=== PATIENT | male | born 1975 | race Caucasian/White ===

== ENCOUNTER 2021-10-16 17:17 | Inpatient (IN) | payer SELFPAY ==
[~2021-10-16] VITALS: Ht 177.8 cm; Wt 73.9 kg
--- NOTE | 2021-10-16 17:25 | NUR ---
BIB SELF C/O [facility] ON THE TESTICLE X 2 DAYS, TO ER BED 3, HOOKED TO MONITOR, VSS, CHANGED TO HOSP GOWN. KEPT COMFORTABLE. AWAITING MD GUSMAN
--- NOTE | 2021-10-16 19:04 | NUR ---
DR DEVLIN AT BEDSIDE
[2021-10-16] MEDS ORDERED: KETOROLAC TROMETHAMINE 15 MG/ML VIAL ONE (19:07)
--- NOTE | 2021-10-16 19:28 | NUR ---
ENDORSEMENT GIVEN TO LIDA GRAHAM FOR KOLTON
[2021-10-16] MEDS ORDERED: KETOROLAC TROMETHAMINE INJ 30 MG/ML VIAL IV ONE (19:30)
[2021-10-16] MEDS ORDERED: IV NS 0.9% 500 ML BAG IV ONE (19:30)
--- NOTE | 2021-10-16 19:37 | NUR ---
US TECH AT PT'S BEDSIDE
[2021-10-16 19:54] LABS: BASOPHILS % (AUTO) 0.3 % (0.0-2.0); EOSINOPHILS % (AUTO) 1.6 % (0.0-6.0); HEMATOCRIT 37 % (39-51); HEMOGLOBIN 12.2 g/dL (13.5-17.5); LYMPHOCYTES # (AUTO) 1.5 K/uL (0.8-4.8); LYMPHOCYTES % (AUTO) 10.7 % (20.0-44.0); MEAN CORPUSCULAR HGB CONC 33 g/dl (31.0-36.0); MEAN CORPUSCULAR VOLUME 90 fL (80-96); MONOCYTES # (AUTO) 1.1 K/uL (0.1-1.30); MONOCYTES % (AUTO) 8.1 % (2.0-12.0); NEUTROPHILS # (AUTO) 10.8 K/uL (1.8-8.9); NEUTROPHILS % (AUTO) 79.3 % (43.0-81.0); PLATELET COUNT (AUTO) 383 K/uL (150-450); RED BLOOD CELL COUNT(AUTO) 4.07 MIL/uL (4.5-6.0); WHITE BLOOD COUNT (AUTO) 13.6 K/uL (4.3-11.0)
[2021-10-16 19:56] LABS: CALCIUM, SERUM 8.9 mg/dL (8.5-10.1); CREATININE 1.1 mg/dL (0.6-1.3)
[2021-10-16] MEDS ORDERED: PIPERACILLIN /TAZOBACTAM 3.375 G in IV D5W 50 ML IV ONE (20:00)
[2021-10-16] MEDS ORDERED: PIPERACILLIN /TAZOBACTAM 3.375 G VIAL IV ONE (20:05)
[2021-10-16] MEDS ORDERED: IOHEXOL-300 100 ML VIAL IV ONE (21:01)
[2021-10-16] MEDS ORDERED: IV NS 0.9% 250 ML IV ONE (21:01)
--- NOTE | 2021-10-16 21:08 | NUR ---
PT TAKEN TO CT VIA EAN
--- NOTE | 2021-10-16 21:47 | NUR ---
COVID ANTIGEN SWAB COLLECTED AND SENT TO LAB
[2021-10-16] MEDS ORDERED: VANCOMYCIN 1 GM VIAL ONE (22:27)
--- NOTE | 2021-10-16 22:29 | NUR ---
CALLED NURSING SUP FOR BED
[2021-10-16] MEDS ORDERED: VANCOMYCIN 1 GM in IV D5W 250 ML IV ONE (22:30)
[2021-10-16] MEDS ORDERED: ONDANSETRON HCL/PF 4 MG/2 ML VIAL IVP PRN (23:00)
[2021-10-16] MEDS ORDERED: ZOLPIDEM TARTRATE 5 MG TABLET PO PRN (23:00)
[2021-10-16] MEDS ORDERED: ACETAMINOPHEN 325 MG TABLET PO PRN (23:00)
[2021-10-16] MEDS ORDERED: MAGNESIUM HYDROXIDE 30 ML UDC PO PRN (23:00)
[2021-10-16] MEDS ORDERED: Z GUARD REMEDY 4 OZ OINT TP PRN (23:00)
[2021-10-16] MEDS ORDERED: MORPHINE SULFATE INJ 2 MG/ML DISP.SYRIN IV PRN (23:00)
[2021-10-16] MEDS ORDERED: MAG HYDROX/AL HYDROX/SIMETH 30 ML UDC PO PRN (23:00)
[2021-10-17] MEDS ORDERED: PIPERACILLIN /TAZOBACTAM 3.375 G in IV D5W 50 ML IV SCH ×2 (02:00→08:00)
[2021-10-17] MEDS ORDERED: PIPERACILLIN /TAZOBACTAM 3.375 G VIAL IV ONE ×2 (02:12→07:08)
--- NOTE | 2021-10-17 03:16 | NUR ---
PT SLEEPING AT THIS TIME. NO S/SX OF PAIN. PT KEPT COMFORTABLE; ALL NEEDS MET.
[2021-10-17 04:40] LABS: BASOPHILS % (AUTO) 0.3 % (0.0-2.0); EOSINOPHILS % (AUTO) 2.4 % (0.0-6.0); HEMATOCRIT 37 % (39-51); HEMOGLOBIN 12.3 g/dL (13.5-17.5); LYMPHOCYTES # (AUTO) 1.5 K/uL (0.8-4.8); LYMPHOCYTES % (AUTO) 13.2 % (20.0-44.0); MEAN CORPUSCULAR HGB CONC 33 g/dl (31.0-36.0); MEAN CORPUSCULAR VOLUME 91 fL (80-96); MONOCYTES % (AUTO) 8.3 % (2.0-12.0); NEUTROPHILS # (AUTO) 8.8 K/uL (1.8-8.9); NEUTROPHILS % (AUTO) 75.8 % (43.0-81.0); PLATELET COUNT (AUTO) 368 K/uL (150-450); RED BLOOD CELL COUNT(AUTO) 4.11 MIL/uL (4.5-6.0); WHITE BLOOD COUNT (AUTO) 11.6 K/uL (4.3-11.0)
[2021-10-17 05:01] LABS: ALBUMIN 2.9 g/dL (3.4-5.0); BILIRUBIN,TOTAL 0.3 mg/dL (0.2-1.0); CALCIUM, SERUM 9.2 mg/dL (8.5-10.1); CREATININE 1.1 mg/dL (0.6-1.3); MAGNESIUM 2.4 mg/dL (1.8-2.4); PHOSPHORUS 4.4 mg/dL (2.5-4.9); POTASSIUM 4.2 mmol/L (3.5-5.1); TOTAL PROTEIN, SERUM 7.3 g/dL (6.4-8.2)
[2021-10-17] MEDS ORDERED: PANTOPRAZOLE 40 MG TABLET.DR PO ONE (07:23)
[2021-10-17] MEDS: ZOSYN IVPB 3.375 G in IV D5W 50ml IV SCH ×4 (07:27→23:36)
[2021-10-17] MEDS: PANTOPRAZOLE 40 MG TABLET.DR PO SCH (07:27)
--- NOTE | 2021-10-17 07:50 | NUR ---
U/S TECH AT BEDSIDE FOR ULTRASOUND OF KIDNEYS.
[2021-10-17] MEDS: VANCOMYCIN 1 GM in IV D5W 250ml IV SCH ×2 (08:20→15:56)
--- NOTE | 2021-10-17 08:47 | NUR ---
REPORT GIVEN TO MINDA RN ROOM 306-2
--- NOTE | 2021-10-17 09:00 | NUR ---
MS ADMIT FROM ER AFTER REPORT RECEIVED. PATIENT ORIENTED TO PRIMARY RN, UNIT, ROOM, BED, AND UNIT POLICIES REGARDING PATIENT CARE AND VISITING HOURS. PATIENT WEIGHED BY BEDSCALE AND ENCOURAGED TO CALL IF THEY NEED SOMETHING. ALL QUESTIONS AND CONCERNS ADDRESSED. PATIENT VERBALIZED UNDERSTANDING.
[2021-10-17] MEDS: HYDROCODONE/APAP 10/325MG TABLET PO PRN (14:38)
[2021-10-17 15:55] VITALS: BP 112/65
--- NOTE | 2021-10-17 18:59 | NUR ---
CHANGE OF SHIFT REPORT PT RESTING COMFORTABLY IN BED. NO S/S OR C/O PAIN OR DISTRESS NOTED. SIDE RAILS UP X2, CALL LIGHT LEFT WITHIN REACH. PT KEPT CLEAN, DRY, AND COMFORTABLE, NO SIGNIFICANT CHANGES SINCE ADMISSION. WILL GIVE REPORT TO HEATHER GRAHAM.
--- NOTE | 2021-10-17 19:24 | NUR ---
MS OPENING NOTES PT RESTING COMFORTABLY IN BED. NO S/S OR C/O PAIN OR DISTRESS NOTED. SIDE RAILS UP X2, CALL LIGHT LEFT WITHIN REACH. PT KEPT CLEAN, DRY, AND COMFORTABLE, WILL CONTINUE TO MONITOR.
[2021-10-17 20:04] VITALS: BP 112/67
[2021-10-18] MEDS: VANCOMYCIN 1 GM in IV D5W 250ml IV SCH ×2 (00:18→11:21)
[2021-10-18] MEDS: ZOSYN IVPB 3.375 G in IV D5W 50ml IV SCH ×4 (05:56→23:36)
[2021-10-18] MEDS: HYDROCODONE/APAP 10/325MG TABLET PO PRN ×2 (06:02→11:17)
--- NOTE | 2021-10-18 06:06 | NUR ---
MS RN NOTES PRN NORCO GIVEN FOR 5/10 PAIN IN THE SCROTAL AREA. TOLERATED WELL. WILL CONTINUE TO MONITOR.
--- NOTE | 2021-10-18 06:53 | NUR ---
MS CLOSING NOTES PT RESTING COMFORTABLY IN BED. NO S/S OR C/O PAIN OR DISTRESS NOTED. SIDE RAILS UP X2, CALL LIGHT LEFT WITHIN REACH. PT KEPT CLEAN, DRY, AND COMFORTABLE, ALL NEEDS ATTENDED TO AND ANTICIPATED. WILL ENDORSE CARE TO DYA SHIFT NURSE.
--- NOTE | 2021-10-18 07:30 | NUR ---
m/s burnishing machine operator: initial assessment received pt in bed awake, a/ox4. no c/o pain at this time. right scrotal still swelling with redness. remains on antibiotic therapy. no a/r noted. instructed to call for assistance. will continue to monitor.
[2021-10-18 07:52] LABS: BASOPHILS % (AUTO) 0.2 % (0.0-2.0); EOSINOPHILS % (AUTO) 1.7 % (0.0-6.0); HEMATOCRIT 38 % (39-51); HEMOGLOBIN 12.3 g/dL (13.5-17.5); LYMPHOCYTES % (AUTO) 10.5 % (20.0-44.0); MEAN CORPUSCULAR HGB CONC 33 g/dl (31.0-36.0); MEAN CORPUSCULAR VOLUME 90 fL (80-96); MONOCYTES % (AUTO) 8.6 % (2.0-12.0); NEUTROPHILS # (AUTO) 10.5 K/uL (1.8-8.9); PLATELET COUNT (AUTO) 364 K/uL (150-450); RED BLOOD CELL COUNT(AUTO) 4.16 MIL/uL (4.5-6.0); WHITE BLOOD COUNT (AUTO) 13.3 K/uL (4.3-11.0)
[2021-10-18 07:53] LABS: LYMPHOCYTES # (AUTO) 1.4 K/uL (0.8-4.8); MONOCYTES # (AUTO) 1.1 K/uL (0.1-1.30)
[2021-10-18 08:00] VITALS: BP 100/63
--- NOTE | 2021-10-18 08:39 | NUR ---
m/s assistant director of public works: notes awaiting for vanco trough result.
[2021-10-18 08:56] LABS: CALCIUM, SERUM 8.5 mg/dL (8.5-10.1); CREATININE 1.2 mg/dL (0.6-1.3); MAGNESIUM 2.2 mg/dL (1.8-2.4); PHOSPHORUS 3.5 mg/dL (2.5-4.9); POTASSIUM 4.1 mmol/L (3.5-5.1)
[2021-10-18] MEDS: PANTOPRAZOLE 40 MG TABLET.DR PO SCH (09:34)
--- NOTE | 2021-10-18 10:00 | NUR ---
m/s soft work wrapper examiner: md visit seen and examined by lana mar (etl database developer) at this time.
--- NOTE | 2021-10-18 14:47 | NUR ---
m/s water superintendent: notes resting comfortable in bed. no distress noted. call light within reach. will continue to monitor.
[2021-10-18 16:00] VITALS: BP 114/75
[2021-10-18] MEDS: VANCOMYCIN 0.75 GM in IV D5W 250 ML IV SCH (16:25)
--- NOTE | 2021-10-18 19:00 | NUR ---
m/s non linear editor: notes bedside report given to dada (rn) for continuity of care.
--- NOTE | 2021-10-18 19:40 | NUR ---
OPENING NOTES PT RESTING COMFORTABLY IN BED. NO S/S OR C/O PAIN OR DISTRESS NOTED.PATIENT ON ROOM AIR, SATURATING 100%.MED SURG PATIENT. UNIVERSAL PRECAUTIONS TAKEN AT THIS TIME. SIDE RAILS UP X2, CALL LIGHT LEFT WITHIN REACH. PT KEPT CLEAN, DRY, AND COMFORTABLE, WILL CONTINUE TO MONITOR.
[2021-10-18 20:00] VITALS: BP 106/68
[2021-10-19] MEDS: VANCOMYCIN 0.75 GM in IV D5W 250 ML IV SCH ×4 (00:20→23:57)
[2021-10-19] MEDS: ZOSYN IVPB 3.375 G in IV D5W 50ml IV SCH ×3 (05:56→18:57)
--- NOTE | 2021-10-19 06:51 | NUR ---
RN NOTE PATIENT REMAINS IN STABLE CONDITION, NO CHANGES THROUGHOUT THE NIGHT. WILL ENDORSE PLAN OF CARE TO AM NURSE.
[2021-10-19 07:21] LABS: BASOPHILS % (AUTO) 0.3 % (0.0-2.0); EOSINOPHILS % (AUTO) 1.9 % (0.0-6.0); HEMATOCRIT 40 % (39-51); HEMOGLOBIN 13.1 g/dL (13.5-17.5); LYMPHOCYTES # (AUTO) 1.6 K/uL (0.8-4.8); LYMPHOCYTES % (AUTO) 10.5 % (20.0-44.0); MEAN CORPUSCULAR HGB CONC 33 g/dl (31.0-36.0); MEAN CORPUSCULAR VOLUME 90 fL (80-96); MONOCYTES # (AUTO) 1.2 K/uL (0.1-1.30); MONOCYTES % (AUTO) 8.3 % (2.0-12.0); NEUTROPHILS # (AUTO) 11.9 K/uL (1.8-8.9); PLATELET COUNT (AUTO) 401 K/uL (150-450)
[2021-10-19 07:28] LABS: CALCIUM, SERUM 9.3 mg/dL (8.5-10.1); CREATININE 1.2 mg/dL (0.6-1.3); MAGNESIUM 2.4 mg/dL (1.8-2.4); PHOSPHORUS 3.2 mg/dL (2.5-4.9)
[2021-10-19 08:00] VITALS: BP 101/69
--- NOTE | 2021-10-19 08:00 | NUR ---
RN Opening Note Patient received in bed, AO x 4, no distress observed, able to responds all stimuli. Skin is warm to touch, keep clean/dry, intact IV site. Kept elevated HOB for ensure air/aspiration precaution and remains lower position of the bed. call light within reach, will continue to monitor.
[2021-10-19] MEDS: PANTOPRAZOLE 40 MG TABLET.DR PO SCH (08:09)
[2021-10-19 16:00] VITALS: BP 126/82
--- NOTE | 2021-10-19 18:00 | NUR ---
RN Closing Note Patient is resting in bed, no distress observed. Respiratory even and unlabored on room air. Skin is warm to touch, keep clean/dry, intact IV site. Kept elevated HOB for ensure airway and aspiration precaution, Also lower position of the bed for safety. Call light within reach, all needs met. will endorse [facility] shift lead.
--- NOTE | 2021-10-19 18:00 | NUR ---
RN Opening Note Patient received in bed, AO x 4, no distress observed, able to responds all stimuli. Skin is warm to touch, keep clean/dry, intact IV site. Kept elevated HOB for ensure air/aspiration precaution and remains lower position of the bed. call light within reach, will continue to monitor. Addendum: 10/19/21 at 1815 by DARIUS MORFIN RN error
--- NOTE | 2021-10-19 19:50 | NUR ---
MS RN OPENING NOTE PATIENT AWAKE IN BED WITH GIRLFRIEND AT BEDSIDE, ALERT/ORIENTED X 4, PT ABLE TO MAKE NEEDS KNOWN. PT DENIES PAIN AT THIS TIME. PT STABLE ON RA, NO S/S OF DISTRESS OR SOB NOTED, BREATHING EVEN AND UNLABORED. IV ACCESS ON RIGHT AC #20G INTACT AND FLUSHING WELL, SALINE LOCKED. SAFETY MEASURES IN PLACE: CALL LIGHT WITHIN REACH, SIDE RAILS UP X 2, BED LOCKED IN LOW POSITION, TABLE WITHIN REACH. WILL CONTINUE TO MONITOR PATIENT
[2021-10-19] MEDS ORDERED: MORPHINE SULFATE INJ 2 MG/ML DISP.SYRIN IV ONE (21:15)
[2021-10-19] MEDS ORDERED: LIDOCAINE HCL/MPF 1% 30 ML VIAL IJ ONE (21:15)
[2021-10-19] MEDS ORDERED: LIDOCAINE 2% 20 ML MDV TP ONE (21:30)
--- NOTE | 2021-10-19 22:00 | NUR ---
MS RN NOTE DR. DOUGLAS PERFORMED I & D OF RIGHT SCROTUM AT BEDSIDE, PER MD 3 MG OF MORPHINE IV GIVEN PRIOR TO PROCEDURE, 2 WOUND CULTURES COLLECTED AND SENT TO LAB. PATIENT TOLERATED WELL. CLEANED UP PATIENT AND COVERED SITE WITH DRY DRESSING. WILL CONTINUE TO MONITOR PATIENT
[2021-10-20] MEDS: ZOSYN IVPB 3.375 G in IV D5W 50ml IV SCH ×5 (01:12→23:59)
[2021-10-20 06:51] LABS: BASOPHILS % (AUTO) 0.4 % (0.0-2.0); EOSINOPHILS % (AUTO) 2.4 % (0.0-6.0); HEMATOCRIT 39 % (39-51); HEMOGLOBIN 12.8 g/dL (13.5-17.5); LYMPHOCYTES # (AUTO) 1.7 K/uL (0.8-4.8); MEAN CORPUSCULAR HGB CONC 33 g/dl (31.0-36.0); MEAN CORPUSCULAR VOLUME 89 fL (80-96); MONOCYTES # (AUTO) 1.1 K/uL (0.1-1.30); MONOCYTES % (AUTO) 9.5 % (2.0-12.0); NEUTROPHILS # (AUTO) 8.4 K/uL (1.8-8.9); NEUTROPHILS % (AUTO) 72.7 % (43.0-81.0); PLATELET COUNT (AUTO) 391 K/uL (150-450); RED BLOOD CELL COUNT(AUTO) 4.34 MIL/uL (4.5-6.0); WHITE BLOOD COUNT (AUTO) 11.6 K/uL (4.3-11.0)
[2021-10-20 06:57] LABS: CALCIUM, SERUM 9.2 mg/dL (8.5-10.1); CREATININE 1.2 mg/dL (0.6-1.3); MAGNESIUM 2.6 mg/dL (1.8-2.4); PHOSPHORUS 4.9 mg/dL (2.5-4.9); POTASSIUM 4.1 mmol/L (3.5-5.1)
--- NOTE | 2021-10-20 07:02 | NUR ---
MS RN CLOSING NOTE PATIENT SLEEPING IN BED, NO SIGNIFICANT CHANGES THROUGHOUT SHIFT, PT ABLE TO MAKE NEEDS KNOWN. PT STABLE ON RA, NO S/S OF DISTRESS OR SOB NOTED, BREATHING EVEN AND UNLABORED. RIGHT AC #20G IV ACCESS RUNNING ZOSYN @ 100 ML/HR. MEDICATIONS GIVEN ORDERED, PT NEEDS MET THROUGHOUT SHIFT. SAFETY MEASURES IN PLACE: CALL LIGHT WITHIN REACH, SIDE RAILS UP X 2, BED LOCKED IN LOW POSITION, TABLE WITHIN REACH. WILL ENDORSE TO DAY SHIFT NURSE FOR CONTINUITY OF CARE
[2021-10-20] MEDS: PANTOPRAZOLE 40 MG TABLET.DR PO SCH (07:47)
--- NOTE | 2021-10-20 07:55 | NUR ---
RN Opening Note Patient received in bed, AO x 4, denies distress observed, able to responds all stimuli. Skin is warm to touch, keep clean/dry, intact IV site. Kept elevated HOB for ensure air/aspiration precaution and remains lower position of the bed. call light within reach, will continue to monitor.
[2021-10-20 08:00] VITALS: BP 86/57
[2021-10-20] MEDS: VANCOMYCIN 0.75 GM in IV D5W 250 ML IV SCH ×2 (08:00→15:01)
--- NOTE | 2021-10-20 10:30 | NUR ---
Patient has 22 level of vanco this morning, will hold IV vancomycin.
--- NOTE | 2021-10-20 11:07 | NUR ---
RN NOTE RECEIVED REPORT FOR CONTINUITY OF CARE, PATIENT STABLE AT THIS TIME. WILL CONTINUE TO MONITOR
--- NOTE | 2021-10-20 13:35 | NUR ---
MRI APPROVED BY DR. SANCHES , RN ORTHO NOTIFIED
[2021-10-20 16:00] VITALS: BP 106/56
--- NOTE | 2021-10-20 16:00 | NUR ---
RN NOTE IV ACCESS ON RAC BECAME DISLODGE, NEW IV ACCESS PLACED ON LAC #20 GAUGE PATENT AND INTACT.
--- NOTE | 2021-10-20 18:22 | NUR ---
MS RN CLOSING NOTE PATIENT SLEEPING IN BED, PT ABLE TO MAKE NEEDS KNOWN. PT IS BREATHING EVENLY AND NONLABORED STABLE ON RA, NO S/S OF DISTRESS OR SOB NOTED, DENIES PAIN OR DISCOMFORT AT THIS TIME. PATIENT HAS LEFT AC #20G IV ACCESS PATENT AND INTACT. MEDICATIONS GIVEN ORDERED, PT NEEDS MET THROUGHOUT SHIFT. SAFETY MEASURES IN PLACE: CALL LIGHT WITHIN REACH, SIDE RAILS UP X 2, BED LOCKED IN LOW POSITION, TABLE WITHIN REACH. WILL ENDORSE TO ONCOMING SHIFT
--- NOTE | 2021-10-20 19:28 | NUR ---
MS RN OPENING NOTE PATIENT RECEIVED ASLEEP IN BED. A/OX4. LAC #20 SL INTACT. NO S/S OF DISTRESS, BREATHING SYMMETRICAL. SAFETY MEASURES IN PLACE: BED AT LOWEST POSITION, RAILS UP X2, CALL LUCIO WITHIN REACH. WILL CONTINUE TO MONITOR PATIENT.
[2021-10-20 20:00] VITALS: BP 104/62
[2021-10-21] MEDS: VANCOMYCIN 0.75 GM in IV D5W 250 ML IV SCH ×2 (03:25→16:47)
--- NOTE | 2021-10-21 03:28 | NUR ---
RN NOTE PATIENT'S RECENT VANCO TROUGH LEVEL (10/20/21) IS 22. PER PRESCRIPTION ORDER, VANCO IS TO BE HELD IF TROUGH LEVEL ABOVE 20. PHARMACY WILL BE NOTIFIED IN THE MORNING WHEN THEY OPEN (~0630).
[2021-10-21] MEDS: ZOSYN IVPB 3.375 G in IV D5W 50ml IV SCH ×3 (05:38→18:37)
--- NOTE | 2021-10-21 06:08 | NUR ---
MS RN CLOSING NOTE PATIENT ASLEEP IN BED. A/OX4. NO S/S OF DISTRESS, BREATHING SYMMETRICALLY. LAC #20 SL INTACT AND PATENT. SAFETY MEASURES IN PLACE: BED AT LOWEST POSITION, RAILS UP X2, CALL LUCIO WITHIN REACH. WILL ENDORSE TO NEXT SHIFT FOR KOLTON.
[2021-10-21 06:42] LABS: BASOPHILS % (AUTO) 0.2 % (0.0-2.0); EOSINOPHILS % (AUTO) 3.3 % (0.0-6.0); HEMATOCRIT 40 % (39-51); HEMOGLOBIN 13.1 g/dL (13.5-17.5); LYMPHOCYTES # (AUTO) 1.5 K/uL (0.8-4.8); LYMPHOCYTES % (AUTO) 12.5 % (20.0-44.0); MEAN CORPUSCULAR HGB CONC 33 g/dl (31.0-36.0); MEAN CORPUSCULAR VOLUME 89 fL (80-96); MONOCYTES # (AUTO) 1.2 K/uL (0.1-1.30); MONOCYTES % (AUTO) 9.6 % (2.0-12.0); NEUTROPHILS # (AUTO) 9.2 K/uL (1.8-8.9); NEUTROPHILS % (AUTO) 74.4 % (43.0-81.0); PLATELET COUNT (AUTO) 398 K/uL (150-450); RED BLOOD CELL COUNT(AUTO) 4.46 MIL/uL (4.5-6.0); WHITE BLOOD COUNT (AUTO) 12.4 K/uL (4.3-11.0)
[2021-10-21 07:25] LABS: CREATININE 1.1 mg/dL (0.6-1.3); MAGNESIUM 2.5 mg/dL (1.8-2.4)
--- NOTE | 2021-10-21 07:25 | NUR ---
MS RN OPENING NOTES RECEIVED PATIENT IN BED WITH EYES CLOSED, ABLE TO BE WAKEN. A/OX4. EQUAL CHEST EXPANSION DURING RESPIRATIONS WITH NO S/SX OF RESPIRATORY DISTRESS NOTED. NO PAIN VERBALIZED AT THIS TIME. LAC G#20 SL INTACT AND PATENT. SAFETY MEASURES IN PLACE: BED IN LOWEST POSITION, WHEELS LOCKED, SIDE RAILS UP X2, CALL LIGHT WITHIN REACH. PATIENT IS CURRENTLY NPO PENDING MRI W/ AND W/OUT CONTRAST OF THE ABDOMEN. PATIENT IS AWARE OF PLAN FOR THE DAY. WILL CONTINUE TO MONITOR PATIENT.
[2021-10-21] MEDS: PANTOPRAZOLE 40 MG TABLET.DR PO SCH (07:30)
[2021-10-21 08:05] VITALS: BP 107/60
--- NOTE | 2021-10-21 09:35 | NUR ---
RN NOTES PATIENT TRANSFERRED DOWN TO MRI FOR PROCEDURE VIA WHEELCHAIR ACCOMPANIED BY ONE TECH.
--- NOTE | 2021-10-21 10:06 | NUR ---
WOUND CARE CONSULT: PT OFF UNIT HAVING MRI AT THIS TIME. DEFER TO UROLOGIST FOR WOUND TREATMENT PLAN. DISCUSSED WITH MANUFACTURING INTERN. WILL SEE PRN.
--- NOTE | 2021-10-21 10:20 | NUR ---
RN NOTES PATIENT IS BACK IN ROOM FROM MRI PROCEDURE. NO CHANGE IN CONDITION NOTED. WILL CONTINUE TO MONITOR PATIENT
[2021-10-21] MEDS ORDERED: POLYETHYLENE GLYCOL 3350 17 GM POWD.PACK PO PRN (15:30)
[2021-10-21 15:47] VITALS: BP 108/67
[2021-10-21] MEDS ORDERED: GADOTERATE MEGLUMINE 5 MMOL/10 ML VIAL IV ONE (18:28)
--- NOTE | 2021-10-21 18:38 | NUR ---
MS RN CLOSING NOTES PATIENT IN BED AWAKE, A/OX4. NO S/SX OF RESPIRATORY DISTRESS NOTED THROUGHOUT SHIFT. NO PAIN VERBALIZED AT THIS TIME. L AC G#20 SL INTACT AND PATENT. SAFETY MEASURES IN PLACE: BED IN LOWEST POSITION, WHEELS LOCKED, SIDE RAILS UP X2, CALL LIGHT WITHIN REACH. ALL ORDERS CARRIED OUT AND MEDICATIONS GIVEN. MRI W/ AND W/OUT CONTRAST OF THE ABDOMEN WAS PERFORMED TODAY. WILL ENDORSE TO THE MEDIUM CYCLE SALESPERSON NURSE FOR KOLTON
[2021-10-21 20:00] VITALS: BP 106/54
[2021-10-21] MEDS ORDERED: BISACODYL (5 MG) 5 MG TABLET.DR PO PRN (20:00)
[2021-10-22] MEDS: VANCOMYCIN 0.75 GM in IV D5W 250 ML IV SCH (04:42)
[2021-10-22 06:10] LABS: BASOPHILS % (AUTO) 0.5 % (0.0-2.0); EOSINOPHILS % (AUTO) 3.6 % (0.0-6.0); HEMATOCRIT 40 % (39-51); HEMOGLOBIN 13.3 g/dL (13.5-17.5); LYMPHOCYTES # (AUTO) 1.5 K/uL (0.8-4.8); MEAN CORPUSCULAR HGB CONC 34 g/dl (31.0-36.0); MEAN CORPUSCULAR VOLUME 89 fL (80-96); MONOCYTES # (AUTO) 0.9 K/uL (0.1-1.30); MONOCYTES % (AUTO) 9.2 % (2.0-12.0); NEUTROPHILS # (AUTO) 7.3 K/uL (1.8-8.9); NEUTROPHILS % (AUTO) 71.7 % (43.0-81.0); PLATELET COUNT (AUTO) 395 K/uL (150-450); RED BLOOD CELL COUNT(AUTO) 4.48 MIL/uL (4.5-6.0); WHITE BLOOD COUNT (AUTO) 10.2 K/uL (4.3-11.0)
--- NOTE | 2021-10-22 06:34 | NUR ---
RN NOTES: PATIENT RESTING IN BED. NO S/SX OF RESPIRATORY DISTRESS NOTED THROUGHOUT SHIFT AND NO CHANGE OF CONDITION NOTED. NO PAIN VERBALIZED AT THIS TIME. SAFETY MEASURES IN PLACE: BED IN LOWEST POSITION, WHEELS LOCKED, SIDE RAILS UP X2, CALL LIGHT WITHIN REACH. WILL ENDORSE TO THE DAY SHIFT NURSE FOR CONTINUITY OF CARE.
[2021-10-22 06:44] LABS: CALCIUM, SERUM 9.2 mg/dL (8.5-10.1); CREATININE 1.2 mg/dL (0.6-1.3); MAGNESIUM 2.5 mg/dL (1.8-2.4); POTASSIUM 3.6 mmol/L (3.5-5.1)
--- NOTE | 2021-10-22 07:25 | NUR ---
RN OPENING NOTES PATIENT IN BED WITH EYES CLOSED, ABLE TO BE WAKEN, A/OX4. EQUAL CHEST EXPANSION WITH NO S/SX OF RESPIRATORY DISTRESS NOTED. NO PAIN VERBALIZED AT THIS TIME. L AC G#20 SL INTACT AND PATENT. SAFETY MEASURES IN PLACE: BED IN LOWEST POSITION, WHEELS LOCKED, SIDE RAILS UP X2, CALL LIGHT WITHIN REACH. WILL CONTINUE PLAN OF CARE
[2021-10-22 08:00] VITALS: BP 104/68
[2021-10-22] MEDS: PANTOPRAZOLE 40 MG TABLET.DR PO SCH (08:17)
[2021-10-22] MEDS ORDERED: SULF1TAB48 PO (10:29)
[2021-10-22] MEDS ORDERED: HYDR-4303 PO (10:29)
[2021-10-22] MEDS ORDERED: VANCOMYCIN 1 GM in IV D5W 250ml IV SCH (16:00)
--- NOTE | 2021-10-22 16:00 | NUR ---
RN NOTES PATIENT HAS PHOTO OF WOUND DOCUMENTED AT TIME OF ADMISSION. PATIENT IS CURRENTLY REFUSING TO HAVE PICTURE TAKEN AGAIN PRIOR TO DISCHARGE. WOUND SITE HAS REDNESS NOTED TO THE SCROTAL AREA. REDNESS HAS RESOLVED/LESSENED DURING HOSPITALIZATION.
--- NOTE | 2021-10-22 16:21 | NUR ---
GRAIN ELEVATOR AGENT NOTES PATIENT IS MEDICALLY STABLE FOR DISCHARGE. V/S WNL. PATIENT WAS EDUCATED ON DISCHARGE INSTRUCTIONS. EXIT CARE PACKET WAS PROVIDED. PATIENT WAS ABLE TO VERBALIZE UNDERSTANDING OF OVERALL HEALTH AND SELF CARE INSTRUCTIONS. ALL FORMS SIGNED AND ALL BELONGINGS ACCOUNTED FOR. IV ACCESS LINES AND ID BAND ARE REMOVED. PATIENT LEFT FACILITY IN PRIVATE CAR ACCOMPANIED BY GIRLFRIEND.
== END 2021-10-22 16:15 | disposition home or self-care (01) | DRG 728 ==
LOC: ER 17:20 → TRANSITION 10-17 01:08 → TELE 10-17 08:21 → MED 10-17 08:24
PROVIDERS: ADMIT Hospitalist; ATTEND Nurse Practitioner Family
PROC: 0V95XZZ Drainage of Scrotum, External Approach (ICD-10-PCS; principal; 2021-10-19)
DX: N49.2 Inflammatory disorders of scrotum (principal); D64.9 Anemia, unspecified; Z20.822 Contact with and (suspected) exposure to COVID-19; D72.829 Elevated white blood cell count, unspecified; N28.1 Cyst of kidney, acquired; N43.3 Hydrocele, unspecified; B95.62 Methicillin resistant Staphylococcus aureus infection as the cause of diseases classified elsewhere
CPT/HCPCS: 36415; 74183-TC; 76770-TC; 76870-TC; 80048-TC; 80053-TC; 80202-TC; 83735-TC; 84100-TC; 85025-TC; 85730-TC; 86140-TC; 87040-TC; 87070-TC; A9575; C9803; G0378; J1885; J2270; J2405; J2543; J3370; J3490; J7040; J7050; J7060; Q9967